=== PATIENT | female | born 1960 | race Asian ===

== ENCOUNTER → 2018-03-25 | Outpatient (CLI) | payer OTHER | END | disposition home or self-care (01) | LOC: CFH 12:02 | PROVIDERS: ATTEND Family Medicine | DX: N63.12 Unspecified lump in the right breast, upper inner quadrant (principal); R92.2 Inconclusive mammogram | CPT/HCPCS: 77065 ==

== ENCOUNTER 2018-08-02 09:18 | Day surgery (SDC) | payer OTHER ==
[2018-08-02] MEDS ORDERED: SODIUM CHLORIDE 0.9% 1,000 ML IV SCH (10:20)
[2018-08-02 11:00] LABS: INTERNATIONAL NORMALIZED RATIO 0.98 (0.93-1.1); PROTHROMBIN TIME 10.3 Seconds (9.6-11.5)
[2018-08-02] MEDS ORDERED: PLEASE ENTER HEIGHT AND WEIGHT MC SCH (11:00)
[2018-08-02] MEDS ORDERED: PLEASE ENTER ALLERGIES MC SCH (11:00)
[2018-08-02] MEDS ORDERED: LIDOCAINE-MPF 1%, 5ML ONE (11:39)
[2018-08-02] MEDS ORDERED: MIDAZOLAM 1 MG/ML, 5ML ONE (11:59)
[2018-08-02] MEDS ORDERED: FENTANYL PF 100 MCG/2ML ONE (11:59)
== END 2018-08-02 14:20 | disposition home or self-care (01) ==
LOC: OUT 09:18 → EDSTATUS 09:30 → OUT 14:20
PROVIDERS: ATTEND Internal Medicine
DX: K73.9 Chronic hepatitis, unspecified (principal); I10 Essential (primary) hypertension
CPT/HCPCS: 36415; 47000; 76942; 85610; 88307; 88313; 99156; 99157; J2250; J3010